=== PATIENT | female | born 1975 | race Caucasian/White ===

== ENCOUNTER 2024-03-26 09:53 | Inpatient (IN) | payer MEDICARE, OTHER ==
[2024-03-26 10:36] LABS: PREGNANCY TEST URINE QUAL NEGATIVE (NEGATIVE)
[2024-03-26] MEDS ORDERED: SEVOFLURANE 250 ML BOTTLE IH ONE (12:38)
[2024-03-26] MEDS ORDERED: DESFLURANE 240 ML BOTTLE IH ONE (12:38)
[2024-03-26] MEDS ORDERED: LIDOCAINE 2% JEL UROJET 10 ML MM ONE (12:50)
[2024-03-26] MEDS ORDERED: LIDOCAINE 2% 50 ML MDV IJ ONE (12:50)
[2024-03-26] MEDS ORDERED: MIDAZOLAM HCL 2 MG/2ML VIAL ONE (12:50)
[2024-03-26] MEDS ORDERED: FENTANYL PF 100MCG/2ML AMPUL ONE (12:50)
[2024-03-26] MEDS ORDERED: FAMOTIDINE/PF INJ 20 MG/2 ML VIAL IV ONE (12:51)
[2024-03-26] MEDS ORDERED: ROCURONIUM BROMIDE 50 MG/5 ML ONE (12:51)
[2024-03-26] MEDS ORDERED: ALBUTEROL SULFATE 8 GM HFA.AER.AD ONE (12:52)
[2024-03-26] MEDS ORDERED: LIDOCAINE 2%-EPI 1:100,000 30 ML VIAL ONE (12:53)
[2024-03-26] MEDS ORDERED: OXYMETAZOLINE HCL NASAL SPRAY 30 ML BOTTLE NS ONE (12:53)
[2024-03-26] MEDS ORDERED: dexaMETHasone SOD PHOSPHATE 2 ML ONE (12:53)
[2024-03-26] MEDS ORDERED: CLINDAMYCIN 900 MG/6 ML VIAL ONE (12:56)
[2024-03-26] MEDS ORDERED: HYDROMORPHONE 1 MG/1 ML DISP.SYRIN ONE (14:57)
[2024-03-26] MEDS ORDERED: ONDANSETRON HCL/PF 4 MG/2 ML VIAL IV PRN (15:30)
[2024-03-26] MEDS ORDERED: IV NS 0.9% 1,000 ML IV PRN (15:30)
[2024-03-26] MEDS ORDERED: ACETAMINOPHEN 325 MG TABLET PO PRN (15:30)
[2024-03-26] MEDS: HYDROMORPHONE 1 MG/1 ML DISP.SYRIN IV PRN (17:06)
[2024-03-26] MEDS ORDERED: LEVO5TAB13 PO (18:51)
[2024-03-26] MEDS ORDERED: PANT40TA49 PO (18:51)
[2024-03-26] MEDS ORDERED: FESO4TAB PO (18:51)
[2024-03-26] MEDS ORDERED: IPRA3AMP23 IH (18:51)
[2024-03-26] MEDS ORDERED: TAMO20TA4 PO (18:51)
[2024-03-26] MEDS ORDERED: TRAM50TA2 PO (18:51)
[2024-03-26] MEDS ORDERED: LORA10TA7 PO (18:51)
[2024-03-26] MEDS ORDERED: GABA300C PO (18:51)
[2024-03-26] MEDS ORDERED: ALBU18HF2 INH (18:51)
[2024-03-26] MEDS ORDERED: PRAV20TA4 PO (18:51)
[2024-03-26] MEDS ORDERED: FERR325T23 PO (18:51)
[2024-03-26] MEDS ORDERED: DILT120T2 PO (18:51)
[2024-03-26] MEDS ORDERED: CHOL200074 PO (18:51)
[2024-03-26] MEDS ORDERED: ASPI-1420 PO (18:51)
[2024-03-26] MEDS ORDERED: CELE200C PO (18:51)
[2024-03-26] MEDS ORDERED: LINA290C PO (18:51)
[2024-03-26] MEDS ORDERED: BACL10TA PO (18:51)
[2024-03-26] MEDS ORDERED: AZEL137S7 NS (18:51)
[2024-03-26] MEDS ORDERED: FLUT1BLS6 IH (18:51)
[2024-03-26] MEDS ORDERED: DICL100G34 TP (18:51)
== END 2024-03-26 19:30 | disposition left against medical advice (07) | DRG 908 ==
LOC: DS 09:53 → MED 16:15
PROVIDERS: ADMIT Dentist Oral and Maxillofacial Surgery; ATTEND Dentist Oral and Maxillofacial Surgery
PROC: 0NBV0ZX Excision of Left Mandible, Open Approach, Diagnostic (ICD-10-PCS; principal; 2024-03-26)
PROC: 0NSV0ZZ Reposition Left Mandible, Open Approach (ICD-10-PCS; 2024-03-26)
PROC: 0NUV07Z Supplement Left Mandible with Autologous Tissue Substitute, Open Approach (ICD-10-PCS; 2024-03-26)
PROC: 0WC50ZZ Extirpation of Matter from Lower Jaw, Open Approach (ICD-10-PCS; 2024-03-26)
DX: T86.831 Bone graft failure (principal); S02.609K Fracture of mandible, unspecified, subsequent encounter for fracture with nonunion; I10 Essential (primary) hypertension; J45.909 Unspecified asthma, uncomplicated; Z85.3 Personal history of malignant neoplasm of breast; F32.A Depression, unspecified; Z90.13 Acquired absence of bilateral breasts and nipples; X58.XXXD Exposure to other specified factors, subsequent encounter; M27.2 Inflammatory conditions of jaws; Y83.2 Surgical operation with anastomosis, bypass or graft as the cause of abnormal reaction of the patient, or of later complication, without mention of misadventure at the time of the procedure
CPT/HCPCS: 84703-TC; C1713; G0378; J0330; J1100; J1170; J2250; J2704; J3010; J3490; J7030

== ENCOUNTER 2024-09-24 06:03 | Inpatient (IN) | payer MEDICARE, OTHER ==
[~2024-09-24] VITALS: Ht 170.2 cm; Wt 74.8 kg
[2024-09-24] VITALS (7 sets, daily range): BP systolic 110–120; BP diastolic 62–78; TEMP 97.7–98; O2SAT 97–99
[~2024-09-24 06:03] MED LIST: ALBU18HF2 INH; ASPI-1420 PO; AZEL137S7 NS; BACL10TA PO; CELE200C PO; CHOL200074 PO; DICL100G34 TP; DILT120T2 PO; FERR325T23 PO; FESO4TAB PO; FLUT1BLS6 IH; GABA300C PO; IPRA3AMP23 IH; LEVO5TAB13 PO; LINA290C PO; LORA10TA7 PO; PANT40TA49 PO; PRAV20TA4 PO; TAMO20TA4 PO; TRAM50TA2 PO
[2024-09-24] MEDS ORDERED: LIDOCAINE 2%-EPI 1:100,000 30 ML VIAL ONE (06:24)
[2024-09-24] MEDS ORDERED: dexaMETHasone SOD PHOSPHATE 2 ML ONE (06:24)
[2024-09-24] MEDS ORDERED: ANESTHESIA TRAY IN PYXIS 1 EA TRAY MC ONE (06:24)
[2024-09-24] MEDS ORDERED: VANCOMYCIN 1 GM VIAL ONE (06:25)
[2024-09-24 06:27] LABS: PREGNANCY TEST URINE QUAL NEGATIVE (NEGATIVE)
[2024-09-24] MEDS ORDERED: LIDOCAINE 2% JEL UROJET 10 ML MM ONE (06:48)
[2024-09-24] MEDS ORDERED: FENTANYL PF 100MCG/2ML AMPUL ONE (06:49)
[2024-09-24] MEDS ORDERED: FAMOTIDINE/PF INJ 20 MG/2 ML VIAL IV ONE (06:50)
[2024-09-24] MEDS ORDERED: OXYMETAZOLINE HCL NASAL SPRAY 30 ML BOTTLE NS ONE (06:50)
[2024-09-24] MEDS ORDERED: ROCURONIUM BROMIDE 50 MG/5 ML ONE (06:50)
[2024-09-24] MEDS ORDERED: SCOPOLAMINE PATCH 1 MG/72HR TD ONE (06:58)
[2024-09-24] MEDS ORDERED: ALBUTEROL SULFATE 8 GM HFA.AER.AD ONE (06:58)
[2024-09-24] MEDS ORDERED: MIDAZOLAM HCL 2 MG/2ML VIAL IV ONE (07:00)
[2024-09-24] MEDS: HYDROMORPHONE 1 MG/1 ML DISP.SYRIN IV PRN (09:28)
[2024-09-24] MEDS ORDERED: ONDANSETRON HCL/PF 4 MG/2 ML VIAL IV PRN (09:30)
[2024-09-24] MEDS ORDERED: ACETAMINOPHEN 325 MG TABLET PO PRN (09:30)
[2024-09-24] MEDS ORDERED: ONDANSETRON HCL/PF 4 MG/2 ML VIAL IVP PRN (11:30)
[2024-09-24] MEDS ORDERED: MAG HYDROX/AL HYDROX/SIMETH 30 ML UDC PO PRN (11:30)
[2024-09-24] MEDS ORDERED: Z GUARD REMEDY 4 OZ OINT TP PRN (11:30)
[2024-09-24] MEDS ORDERED: TRAMADOL HCL 50 MG TABLET PO PRN (11:30)
[2024-09-24] MEDS ORDERED: ZOLPIDEM TARTRATE 5 MG TABLET PO PRN (11:30)
[2024-09-24] MEDS ORDERED: HYDROCODONE/APAP 5/325MG TABLET PO PRN (11:30)
[2024-09-24] MEDS ORDERED: MAGNESIUM HYDROXIDE 30 ML UDC PO PRN (11:30)
[2024-09-24] MEDS: IV NS 0.9% 1,000 ML IV PRN (11:48)
[2024-09-24] MEDS ORDERED: IPRATROPIUM NEB FS 0.5 MG/2.5 ML AMPUL.NEB NEB PRN (12:30)
[2024-09-24] MEDS ORDERED: ALBUTEROL FS 2.5 MG/3 ML VIAL.NEB NEB PRN ×2 (12:30)
[2024-09-24] MEDS: GABAPENTIN 300 MG CAPSULE PO SCH (13:39)
[2024-09-24] MEDS: ACETAMINOPHEN 325 MG TABLET PO PRN (15:34)
[2024-09-24] MEDS: OXYBUTYNIN CHLORIDE 5 MG TABLET PO SCH (17:09)
[2024-09-24] MEDS ORDERED: Medication Not On Formulary EA (Levocetirizine Dihydrochloride 5 MG) PO SCH (18:00)
[2024-09-25] MEDS ORDERED: LORATADINE 10 MG TABLET PO SCH (09:00)
[2024-09-25] MEDS ORDERED: PANTOPRAZOLE 40 MG TABLET.DR PO SCH (09:00)
[2024-09-25] MEDS ORDERED: ATORVASTATIN 10 MG TABLET PO SCH (09:00)
[2024-09-25] MEDS ORDERED: CHOLECALCIFEROL 1,000 UNIT TABLET (VIT D3) PO SCH (09:00)
[2024-09-25] MEDS ORDERED: FERROUS SULFATE (325 MG) 325 MG/TAB TABLET PO SCH (09:00)
[2024-09-25] MEDS ORDERED: TAMOXIFEN CITRATE 10 MG TABLET PO SCH (09:00)
[2024-09-25] MEDS ORDERED: DILTIAZEM HCL 30 MG TABLET PO SCH (09:00)
[2024-09-25] MEDS ORDERED: AZELASTINE NASAL SPRAY 30 ML BOTTLE NS SCH (09:00)
[2024-09-25] MEDS ORDERED: Medication Not On Formulary EA (Linaclotide (Linzess) 290 MCG) PO SCH (09:00)
[2024-09-25] MEDS ORDERED: Medication Not On Formulary EA (Fesoterodine Fumarate (Toviaz) 4 MG) PO SCH (09:00)
[2024-09-25] MEDS ORDERED: Medication Not On Formulary EA (Fluticasone/Umeclidin/Vilanter (Trelegy Ellipta 100-62.5 IH SCH (09:00)
[2024-09-25] MEDS ORDERED: BACLOFEN (10 MG) 10 MG TABLET PO SCH (09:00)
== END 2024-09-24 18:17 | disposition home or self-care (01) | DRG 908 ==
LOC: DS 06:03 → MED 09:09
PROVIDERS: ADMIT Student in an Organized Health Care Education/Training Program; ATTEND Student in an Organized Health Care Education/Training Program
PROC: 0NUV07Z Supplement Left Mandible with Autologous Tissue Substitute, Open Approach (ICD-10-PCS; principal; 2024-09-24)
PROC: 0N5V0ZZ Destruction of Left Mandible, Open Approach (ICD-10-PCS; 2024-09-24)
PROC: 0NSV04Z Reposition Left Mandible with Internal Fixation Device, Open Approach (ICD-10-PCS; 2024-09-24)
DX: T86.831 Bone graft failure (principal); S02.609K Fracture of mandible, unspecified, subsequent encounter for fracture with nonunion; Y92.9 Unspecified place or not applicable; Y83.2 Surgical operation with anastomosis, bypass or graft as the cause of abnormal reaction of the patient, or of later complication, without mention of misadventure at the time of the procedure; C50.919 Malignant neoplasm of unspecified site of unspecified female breast; I25.10 Atherosclerotic heart disease of native coronary artery without angina pectoris; E78.5 Hyperlipidemia, unspecified; I10 Essential (primary) hypertension; J45.909 Unspecified asthma, uncomplicated; Z88.1 Allergy status to other antibiotic agents; Z88.0 Allergy status to penicillin; Z79.51 Long term (current) use of inhaled steroids; Z79.82 Long term (current) use of aspirin; Z79.899 Other long term (current) drug therapy
CPT/HCPCS: 84703-TC; 88305-TC; 88311-TC; A4223; A4338; C1713; G0378; J0690; J1100; J1171; J1885; J2250; J2405; J2704; J3010; J3370; J3490; J7030